=== PATIENT | male | born 1960 | race Caucasian/White ===

== ENCOUNTER 2021-02-16 14:27 | Inpatient (IN) | payer OTHER ==
[2021-02-16] MEDS ORDERED: SODIUM CHLORIDE 0.9% 500 ML INFUS.BAG IV ONE (16:06)
[2021-02-16] MEDS ORDERED: ACETAMINOPHEN 1000 MG/100 ML VIAL (NON FORMULARY) IVPB ONE (16:06)
[2021-02-16 17:16] LABS: BASO % 0.7 % (0-2.0); EOS % 0.6 % (0-4.5); HEMATOCRIT 39.2 % (35.4-49); HEMOGLOBIN 13.1 GM/dL (11.7-16.9); LYMPH % 10.2 % (8-40); MCH 29.1 pg (25.7-33.7); MCHC 33.4 g/dl (32.0-35.9); MEAN CELL VOLUME 87.2 fl (80-96); MEAN PLT VOLUME 8.2 fl (7.5-11.1); MONO % 8.1 % (3.8-10.2); NEUT % 80.4 % (42.8-82.8); PLATELET COUNT 294 10^3/uL (134-434); WHITE BLOOD COUNT 12.7 K/mm3 (4.0-10.0)
[2021-02-16 17:24] LABS: ALBUMIN 3.8 g/dl (3.4-5.0); CALCIUM 8.8 mg/dL (8.5-10.1)
[2021-02-16 17:25] LABS: BLOOD UREA NITROGEN 7.8 mg/dL (7-18)
[2021-02-16] MEDS ORDERED: ACETAMINOPHEN INJECTION 100 ML IVPB ONE (17:26)
[2021-02-16 17:28] LABS: CREATININE 0.9 mg/dL (0.55-1.3)
[2021-02-16 17:29] LABS: BILIRUBIN,TOTAL 0.8 mg/dL (0.2-1); TOT PROT 9.3 g/dl (6.4-8.2)
[2021-02-16] MEDS ORDERED: MECLIZINE HCL 25 MG TABLET (FP) PO ONE (17:39)
[2021-02-16] MEDS ORDERED: PIPERACILLIN/TAZOB 3.375 GM 3.375 GM in DEXTROSE 5%-WATER - 50 ML IVPB ONE (17:46)
[2021-02-16] MEDS ORDERED: VANCOMYCIN 1 GM in D5W (PRE-DOCKED) 1,000 MG/250 ML IVPB ONE (17:46)
[2021-02-16 18:07] LABS: ERYTHROCYTE SEDIMENTATION RATE 76 mm/hr (0-20)
[2021-02-16 18:34] LABS: CALCIUM 8.6 mg/dL (8.5-10.1)
[2021-02-16] MEDS ORDERED: PIPERACILLIN/TAZOB 3.375 GM 3.375 GM/50 ML BAG IVPB ONE (18:34)
[2021-02-16] MEDS ORDERED: VANCOMYCIN 1 GRAM (PRE-DOCKED) 1,000 MG/250 ML BAG IVPB ONE (18:34)
[2021-02-16 18:35] LABS: BLOOD UREA NITROGEN 7.4 mg/dL (7-18)
[2021-02-16 18:38] LABS: CREATININE 0.8 mg/dL (0.55-1.3)
[2021-02-16] MEDS: INSULIN SLIDING SCALE (NOVOLOG) 1 VIAL SQ SCH (23:03)
[2021-02-17 01:02] VITALS: BMI 21.6
[2021-02-17] MEDS ORDERED: PIPERACILLIN/TAZOBACTAM 3.375 GM VIAL IVPB ONE ×3 (01:06→17:05)
[2021-02-17] MEDS ORDERED: DEXTROSE 5%-WATER - 50 ML IVPB ONE ×4 (01:06→22:08)
[2021-02-17] MEDS: PIPERACILLIN/TAZOB 3.375 GM 3.375 GM in DEXTROSE 5%-WATER - 50 ML IVPB SCH ×3 (01:29→17:18)
[2021-02-17] MEDS: INSULIN SLIDING SCALE (NOVOLOG) 1 VIAL SQ SCH ×4 (06:30→21:35)
[2021-02-17] MEDS ORDERED: VANCOMYCIN 1 GM in D5W (PRE-DOCKED) 1,000 MG/250 ML IVPB SCH (07:00)
[2021-02-17 08:17] LABS: HEMATOCRIT 32.8 % (35.4-49); MCH 29.2 pg (25.7-33.7); MCHC 33.6 g/dl (32.0-35.9); MEAN CELL VOLUME 86.9 fl (80-96); PLATELET COUNT 284 10^3/uL (134-434); RBC 3.77 M/mm3 (4.00-5.60); RDW 14.6 % (11.9-15.9); WHITE BLOOD COUNT 8.7 K/mm3 (4.0-10.0)
[2021-02-17 08:34] LABS: CHOLESTEROL 115 mg/dL (50-200); TRIGLYCERIDES 69 mg/dL (0-150)
[2021-02-17 08:35] LABS: LDL CHOLESTEROL (ONLY SJRH) 66 mg/dL (5-100)
[2021-02-17 08:38] LABS: HDL CHOLESTEROL 35 mg/dL (40-60)
[2021-02-17 08:46] LABS: BLOOD UREA NITROGEN 10.4 mg/dL (7-18); CALCIUM 8.2 mg/dL (8.5-10.1)
[2021-02-17 08:47] LABS: MAGNESIUM 2.1 mg/dL (1.8-2.4)
[2021-02-17 08:49] LABS: CREATININE 0.7 mg/dL (0.55-1.3); PHOSPHOROUS 2.8 mg/dL (2.5-4.9)
[2021-02-17 08:50] LABS: BILIRUBIN,TOTAL 0.8 mg/dL (0.2-1)
[2021-02-17 08:56] LABS: ALBUMIN 2.8 g/dl (3.4-5.0); TOT PROT 7.2 g/dl (6.4-8.2)
[2021-02-17] MEDS: ENOXAPARIN NA (PORCINE) 40 MG/0.4 ML DISP.SYRIN SQ SCH (09:29)
[2021-02-17 09:52] LABS: EPI CELLS 1 /uL (0-25.1); HYALINE CASTS 0 /uL (0-3.1); URINE APPEARANCE CLEAR; URINE BACTERIA 10 /uL (0-1359); URINE BILIRUBIN NEGATIVE (NEGATIVE); URINE COLOR YELLOW; URINE GLUCOSE (UA) NEGATIVE (NEGATIVE); URINE KETONE NEGATIVE (NEGATIVE); URINE LEUK ESTERASE NEGATIVE (NEGATIVE); URINE NITRITE NEGATIVE (NEGATIVE); URINE PROTEIN 2+ (NEGATIVE); URINE RBC 8 /uL (0-23.9); URINE WBC 2 /uL (0-25.8)
[2021-02-17] MEDS: VANCOMYCIN 1 GM in D5W (PRE-DOCKED) 1,000 MG/250 ML IVPB SCH (18:43)
[2021-02-17] MEDS ORDERED: INSULIN (NOVOLOG) ASPART 100 UNITS/ML 10ML VIAL ONE (21:35)
[2021-02-17] MEDS ORDERED: cefTRIAXone SODIUM 1 GM VIAL ONE (22:08)
[2021-02-17] MEDS: CEFTRIAXONE 1 GM in DEXTROSE 5%-WATER - 50 ML IVPB SCH (22:20)
[2021-02-18] MEDS: INSULIN SLIDING SCALE (NOVOLOG) 1 VIAL SQ SCH ×4 (06:30→22:41)
[2021-02-18] MEDS: VANCOMYCIN 1 GM in D5W (PRE-DOCKED) 1,000 MG/250 ML IVPB SCH ×2 (06:31→18:41)
[2021-02-18 08:26] LABS: HEMATOCRIT 34.7 % (35.4-49); HEMOGLOBIN 11.8 GM/dL (11.7-16.9); MCH 29.1 pg (25.7-33.7); MCHC 33.9 g/dl (32.0-35.9); MEAN CELL VOLUME 85.7 fl (80-96); MEAN PLT VOLUME 7.3 fl (7.5-11.1); PLATELET COUNT 314 10^3/uL (134-434); RBC 4.05 M/mm3 (4.00-5.60); RDW 14.5 % (11.9-15.9); WHITE BLOOD COUNT 7.2 K/mm3 (4.0-10.0)
[2021-02-18 08:58] LABS: ALBUMIN 2.9 g/dl (3.4-5.0); BLOOD UREA NITROGEN 12.2 mg/dL (7-18); CALCIUM 8.7 mg/dL (8.5-10.1)
[2021-02-18 09:02] LABS: CREATININE 0.8 mg/dL (0.55-1.3); PHOSPHOROUS 2.8 mg/dL (2.5-4.9)
[2021-02-18 09:03] LABS: BILIRUBIN,TOTAL 0.9 mg/dL (0.2-1); TOT PROT 7.6 g/dl (6.4-8.2)
[2021-02-18] MEDS ORDERED: cefTRIAXone SODIUM 1 GM VIAL ONE (09:38)
[2021-02-18] MEDS ORDERED: DEXTROSE 5%-WATER - 50 ML IVPB ONE (09:39)
[2021-02-18] MEDS: LISINOPRIL 5 MG TABLET PO SCH (09:44)
[2021-02-18] MEDS: CEFTRIAXONE 1 GM in DEXTROSE 5%-WATER - 50 ML IVPB SCH (09:45)
[2021-02-18] MEDS: ENOXAPARIN NA (PORCINE) 40 MG/0.4 ML DISP.SYRIN SQ SCH (09:45)
[2021-02-18] MEDS ORDERED: INSULIN (NOVOLOG) ASPART 100 UNITS/ML 10ML VIAL ONE (10:55)
[2021-02-18] MEDS ORDERED: SODIUM CHLORIDE NASAL SPRAY 44 ML BOTTLE NS PRN (19:03)
[2021-02-19] MEDS: INSULIN SLIDING SCALE (NOVOLOG) 1 VIAL SQ SCH ×4 (06:12→21:45)
[2021-02-19] MEDS: PIPERACILLIN/TAZOB 3.375 GM 3.375 GM in DEXTROSE 5%-WATER - 50 ML IVPB SCH (07:36)
[2021-02-19 08:55] LABS: HEMATOCRIT 35.8 % (35.4-49); HEMOGLOBIN 12.4 GM/dL (11.7-16.9); MCH 30.4 pg (25.7-33.7); MCHC 34.7 g/dl (32.0-35.9); MEAN CELL VOLUME 87.7 fl (80-96); MEAN PLT VOLUME 8.1 fl (7.5-11.1); PLATELET COUNT 392 10^3/uL (134-434); RBC 4.09 M/mm3 (4.00-5.60); RDW 14.9 % (11.9-15.9)
[2021-02-19 09:16] LABS: CALCIUM 8.8 mg/dL (8.5-10.1)
[2021-02-19 09:17] LABS: BLOOD UREA NITROGEN 16.2 mg/dL (7-18); MAGNESIUM 2.1 mg/dL (1.8-2.4)
[2021-02-19 09:19] LABS: CREATININE 0.8 mg/dL (0.55-1.3)
[2021-02-19 09:20] LABS: BILIRUBIN,TOTAL 0.8 mg/dL (0.2-1); PHOSPHOROUS 3.8 mg/dL (2.5-4.9)
[2021-02-19 09:21] LABS: TOT PROT 7.9 g/dl (6.4-8.2)
[2021-02-19] MEDS ORDERED: cefTRIAXone SODIUM 1 GM VIAL ONE (09:40)
[2021-02-19] MEDS ORDERED: DEXTROSE 5%-WATER - 50 ML IVPB ONE (09:41)
[2021-02-19] MEDS: LISINOPRIL 5 MG TABLET PO SCH (10:18)
[2021-02-19] MEDS: ENOXAPARIN NA (PORCINE) 40 MG/0.4 ML DISP.SYRIN SQ SCH (10:18)
[2021-02-19] MEDS: CEFTRIAXONE 1 GM in DEXTROSE 5%-WATER - 50 ML IVPB SCH (11:02)
[2021-02-19] MEDS: VANCOMYCIN 1 GM in D5W (PRE-DOCKED) 1,000 MG/250 ML IVPB SCH ×2 (11:35→18:20)
[2021-02-19] MEDS: ACETAMINOPHEN 325 MG TABLET (FP) PO PRN (17:31)
[2021-02-20] MEDS: VANCOMYCIN 1 GM in D5W (PRE-DOCKED) 1,000 MG/250 ML IVPB SCH (06:09)
[2021-02-20] MEDS: INSULIN SLIDING SCALE (NOVOLOG) 1 VIAL SQ SCH ×3 (06:13→17:11)
[2021-02-20 08:45] LABS: HEMATOCRIT 33.8 % (35.4-49); HEMOGLOBIN 11.3 GM/dL (11.7-16.9); MCH 29.2 pg (25.7-33.7); MCHC 33.5 g/dl (32.0-35.9); MEAN CELL VOLUME 87.2 fl (80-96); MEAN PLT VOLUME 7.4 fl (7.5-11.1); PLATELET COUNT 371 10^3/uL (134-434); RBC 3.87 M/mm3 (4.00-5.60); RDW 14.5 % (11.9-15.9); WHITE BLOOD COUNT 6.4 K/mm3 (4.0-10.0)
[2021-02-20 09:06] LABS: CALCIUM 8.6 mg/dL (8.5-10.1)
[2021-02-20 09:07] LABS: ALBUMIN 2.9 g/dl (3.4-5.0); BLOOD UREA NITROGEN 18.6 mg/dL (7-18); MAGNESIUM 2.2 mg/dL (1.8-2.4)
[2021-02-20 09:10] LABS: CREATININE 0.7 mg/dL (0.55-1.3)
[2021-02-20 09:12] LABS: BILIRUBIN,TOTAL 0.7 mg/dL (0.2-1); TOT PROT 7.8 g/dl (6.4-8.2)
[2021-02-20] MEDS: ACETAMINOPHEN 325 MG TABLET (FP) PO PRN (09:21)
[2021-02-20] MEDS ORDERED: cefTRIAXone SODIUM 1 GM VIAL ONE (10:52)
[2021-02-20] MEDS ORDERED: DEXTROSE 5%-WATER - 50 ML IVPB ONE (10:52)
[2021-02-20] MEDS: CEFTRIAXONE 1 GM in DEXTROSE 5%-WATER - 50 ML IVPB SCH (11:02)
[2021-02-20] MEDS: ENOXAPARIN NA (PORCINE) 40 MG/0.4 ML DISP.SYRIN SQ SCH (11:02)
[2021-02-20] MEDS: LISINOPRIL 5 MG TABLET PO SCH (11:03)
[2021-02-20 14:33] VITALS: BP 160/98; PULSE 88; TEMP 98.3
== END 2021-02-20 18:39 | disposition home or self-care (01) | DRG 349 ==
LOC: JER 14:27 → JERBED 18:02 → J6S 02-17 00:48
PROVIDERS: ADMIT Internal Medicine; ATTEND Internal Medicine
DX: T87.43 Infection of amputation stump, right lower extremity (principal); L03.115 Cellulitis of right lower limb; D72.829 Elevated white blood cell count, unspecified; M25.561 Pain in right knee; E11.65 Type 2 diabetes mellitus with hyperglycemia; R60.9 Edema, unspecified; Z89.511 Acquired absence of right leg below knee; Y83.9 Surgical procedure, unspecified as the cause of abnormal reaction of the patient, or of later complication, without mention of misadventure at the time of the procedure; R74.01 Elevation of levels of liver transaminase levels; R80.9 Proteinuria, unspecified; Z91.14 Patient's other noncompliance with medication regimen
CPT/HCPCS: 36415; 73564-TC-RT-FY; 80048; 80053; 80061; 81003; 82570; 82962; 83036; 83605; 83735; 84100; 84156; 84550; 85025; 85027; 85651; 86140; 87040; 93005; 93010; 94010; 97116-GP; 97162-GP; 99285-25; C9803; G0480; J0131; U0003; U0005